=== PATIENT | male | born 1990 | race Caucasian/White ===

== ENCOUNTER 2020-10-08 10:40 | Emergency (ER) | payer OTHER ==
[2020-10-08] MEDS ORDERED: BACTROBAN OINT22 GM EXT (12:43)
[2020-10-08] MEDS ORDERED: CEPHALEXIN500 MG PO (12:43)
== END 2020-10-08 12:46 | disposition home or self-care (01) ==
LOC: ER1 10:40
DX: S01.81XA Laceration without foreign body of other part of head, initial encounter (principal); S06.0X0A Concussion without loss of consciousness, initial encounter; W22.8XXA Striking against or struck by other objects, initial encounter
CPT/HCPCS: 12013; 70450; 99283

== ENCOUNTER 2020-10-15 10:53 | Emergency (ER) | payer OTHER ==
[~2020-10-15 10:53] MED LIST: BACTROBAN OINT22 GM EXT; CEPHALEXIN500 MG PO
== END 2020-10-15 12:00 | disposition home or self-care (01) ==
LOC: ER1 10:53
DX: S01.81XD Laceration without foreign body of other part of head, subsequent encounter (principal)
CPT/HCPCS: 99281